=== PATIENT | male | born 1950 | race Caucasian/White ===

== ENCOUNTER 2016-08-28 11:05 | Inpatient (IN) | payer MEDICARE, MEDICAID ==
[2016-08-28] MEDS ORDERED: Vancomycin(*) 1,000 MG in NS 0.9% 250 ML* 250 ML IVPB ONE ×2 (11:27→12:00)
[2016-08-28] MEDS ORDERED: NS 0.9% 1000 ML* 2,000 ML IV ONE (11:27)
[2016-08-28] MEDS ORDERED: metroNIDAZOLE IV 500 MG/100ML* 500 MG/100 ML BAG IVPB ONE (11:27)
[2016-08-28] MEDS ORDERED: NS 0.9% 50 ML* 100 ML ONE (11:47)
[2016-08-28 11:56] LABS: Hematocrit 41 % (42-52); Hemoglobin 11.8 g/dl (14.0-18.0); Mean Corpuscular HGB Conc 29 g/dl (31-36); Mean Corpuscular Hemoglobin 21 pg (27-31); Mean Corpuscular Volume 74 fL (80-94); Mean Platelet Volume 10 um3 (7.4-10.4); Red Blood Count 5.56 10^6/ul (4.0-5.4); Red Cell Distribution Width 19 % (10.5-15); White Blood Count 32.3 10^3/ul (3.5-10.8)
[2016-08-28 11:57] LABS: Add Diff/Slide Review? Slide Review Added; Comments Flag Yes
[2016-08-28] MEDS: Acetaminophen SUPP* 650 MG SUPP PR ONE ×2 (11:58→14:56)
[2016-08-28] MEDS ORDERED: Norepinephrine 16MCG/ML IVPRE* 4,000 MCG/250 ML BAG IV ONE (12:00)
[2016-08-28] MEDS ORDERED: Cefepime(*) 2 GM in NS 0.9% 50 ML* 50 ML IVPB ONE (12:00)
[2016-08-28 12:01] LABS: PCO2 Arterial 45 mmHg (35-45)
[2016-08-28 12:12] LABS: ALT 19 U/L (7-52); AST 15 U/L (13-39); Albumin 2.9 g/dL (3.2-5.2); Alkaline Phosphatase 191 U/L (34-104); Anion Gap 6 mmol/L (2-11); BUN/Creatinine Ratio 16.3 (8-20); Blood Urea Nitrogen 49 mg/dL (6-24); C Reactive Protein 83.63 mg/L (< 5.00); CO2 Carbon Dioxide 30 mmol/L (22-32); Calcium 8.6 mg/dL (8.6-10.3); Chloride 112 mmol/L (101-111); Creatine Kinase 153 U/L (10-223); EGFR African American 27.3 (>60); EGFR Non-African American 21.2 (>60); Glucose 352 mg/dL (70-100); Lipase 16 U/L (11.0-82.0); Magnesium 2.2 mg/dL (1.9-2.7); Potassium 4.6 mmol/L (3.5-5.0); Sodium 148 mmol/L (133-145); Total Protein 5.9 g/dL (6.4-8.9)
[2016-08-28] MEDS ORDERED: EPINEPHrine SYR 0.1 MG/ML* (1:10,000) SYRINGE ONE ×2 (12:20→13:20)
[2016-08-28] MEDS: NS 0.9% 1000 ML* 3,000 ML IV ONE ×2 (12:24→14:54)
[2016-08-28] MEDS ORDERED: fentaNYL* 50 MCG/ML 5 ML VIAL (250 MCG VIAL) ONE (12:32)
[2016-08-28] MEDS ORDERED: Propofol* 10 MG/ML 20 ML BTL IV PUSH ONE (12:32)
[2016-08-28] MEDS ORDERED: Propofol* 100 ML ONE (12:37)
--- NOTE | 2016-08-28 12:37 | RAD ---
HISTORY: Altered mental status COMPARISONS: October 10, 2013 VIEWS:1: Single frontal portable view of the chest at 12:00 PM FINDINGS: LINES AND TUBES: None. CARDIOMEDIASTINAL SILHOUETTE: The cardiomediastinal silhouette is normal for portable technique. PLEURA: The costophrenic angles are sharp. No pleural abnormalities are noted. LUNG PARENCHYMA: The lung volumes are low. The lungs are clear accounting for the phase of respiration. ABDOMEN: The upper abdomen is clear. There is no subphrenic gas. BONES AND SOFT TISSUES: No bone or soft tissue abnormalities are noted. IMPRESSION: LOW LUNG VOLUMES. NO ACTIVE CARDIOPULMONARY DISEASE.
[2016-08-28] MEDS ORDERED: Norepinephrine 16MCG/ML IVPRE* (4 MG/250 ML) IV ONE (12:50)
--- NOTE | 2016-08-28 12:52 | ED ---
Ash Siddiqui Anna, scribed for Tony Cm MD on 08/28/16 at 1120 . Altered Mental Status - HPI Summary HPI Summary: Patient is a 65 y/o male BIBA to [facility] presenting with sudden onset of constant AMS that began two hours ago. The staff at [facility], where he is a resident, noticed increased lethargy and speech deficits that began this morning. They have additionally noticed left pedal edema and SOB that began a while ago. His O2 sat was 82 on RA and 94 on 4L. His history is significant for CVA and left-sided weakness. LEVEL 5 CAVEAT UNABLE TO OBTAIN FULL HISTORY DUE TO ALTERED MENTAL STATUS. - History Of Current Complaint Stated Complaint: DIFF BREATHING/FEVER Hx Obtained From: EMS Hx From Patient Unobtainable Due To: Altered Mental Status Onset/Duration: Still Present Timing: Lasting Hours - Allergies/Home Medications Allergies/Adverse Reactions: Allergies Allergy/AdvReac Type Severity Reaction Status Date / Time Wheat Bran AdvReac See Comment Verified 11/29/13 09:47 PMH/Surg Hx/FS Hx/Imm Hx Endocrine/Hematology History: Reports: Hx Anticoagulant Therapy - HX AFIB, Hx Diabetes Denies: Hx Blood Disorders, Hx Blood Transfusions, Hx Bone Marrow Disease, Hx Systemic Lupus Erythematosus, Hx Sickle Cell Disease, Hx Thyroid Disease, Hx Anemia, Hx Unexplained Bleeding Cardiovascular History: Reports: Hx Hypercholesterolemia, Hx Hypertension, Other Cardiovascular Problems/Disorders - Favio Tolbert Denies: Hx Aneurysm, Hx Angina, Hx Angioplasty, Hx Auto Implanted Cardiovert Defib, Hx Cardiac Arrest, Hx Cardiomegaly, Hx Congenital Heart Disease, Hx Congestive Heart Failure, Hx Coronary Artery Disease, Hx Deep Vein Thrombosis, Hx Embolism, Hx Hypotension, Hx Pacemaker/ICD, Hx Peripheral Vascular Disease, Hx Rheumatic Fever, Hx Syncope, Hx Valvular Heart Disease Respiratory History: Denies: Hx Asthma, Hx Chronic Bronchitis, Hx Chronic Obstructive Pulmonary Disease (COPD), Hx Cystic Fibrosis, Hx Lung Cancer, Hx Pleural Effusion, Hx Pulmonary Edema, Hx Pulmonary Embolism, Hx Seasonal Allergies, Other Respiratory Problems/Disorders Comment Only: Hx Sleep Apnea - questionable GI History: Denies: Hx Cirrhosis, Hx Crohn's Disease, Hx Diverticulosis, Hx Gall Bladder Disease, Hx Gastroesophageal Reflux Disease, Hx Gastrointestinal Bleed, Hx Hiatal Hernia, Hx Irritable Bowel, Hx Jaundice, Hx Obstructive Bowel, Hx Ileostomy, Hx Pyloric Stenosis, Hx Ulcer, Other GI Disorders History: Reports: Hx Benign Prostatic Hyperplasia - [employer] STATES, Hx Chronic Renal Failure - H+P states CKD, Other Problems/Disorders - cronic UTI, urinary retention Denies: Hx Acute Renal Failure, Hx Dialysis, Hx Kidney Infection, Hx Kidney Stones Musculoskeletal History: Reports: Other Musculoskeletal History - Hx of hip fx and femur fx Denies: Hx Arthritis, Hx Back Problems, Hx Bursitis, Hx Congenital Bone Abnormalities, Hx Fibromyalgia, Hx Gout, Hx Orthopedic Injury, Hx Osteoporosis, Hx Scoliosis, Hx Tendonitis Sensory History: Reports: Hx Contacts or Glasses, 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 LEFT FEMUR FX Hx Anesthesia Reactions: No - Immunization History Date of Tetanus Vaccine: Unk Date of Influenza Vaccine: No longer gets flu vaccine, as consistently had flu after vaccine Infectious Disease History: Denies: Hx Clostridium Difficile, Hx Hepatitis, Hx Human Immunodeficiency Virus (HIV), Hx of Known/Suspected MRSA, Hx Shingles, Hx Tuberculosis, Hx Known/ Suspected VRE, Hx Known/Suspected VRSA, History Other Infectious Disease - Family History Known Family History: Positive: Hypertension - Social History Lives: [facility] Alcohol Use: None Substance Use Type: Reports: None Smoking Status (MU): Former Smoker Review of Systems - ROS Summary Review of Systems Summary: LEVEL 5 CAVEAT UNABLE TO OBTAIN FULL HISTORY DUE TO ALTERED MENTAL STATUS. Positive: Other - lethargy Positive: Shortness Of Breath Positive: Edema Neurological: Other - Altered mental status, aphasia All Other Systems Reviewed And Are Negative: No Physical Exam Triage Information Reviewed: Yes Vital Signs Reviewed: Yes Appearance: Positive: Well-Appearing, No Pain Distress Skin: Positive: Warm, Skin Color Reflects Adequate Perfusion, Dry Head/Face: Positive: Normal Head/Face Inspection Eyes: Positive: EOMI, MARY ELLEN ENT: Positive: Normal ENT inspection Neck: Positive: Supple, Nontender Respiratory/Lung Sounds: Positive: Rhonchi - Bilaterally Cardiovascular: Positive: Tachycardia Abdomen Description: Positive: Nontender, Soft Musculoskeletal: Positive: Other - Left side flaccid, chronic Neurological: Positive: Other - Nonverbal. Negative: Sensory/Motor Intact - Left side flaccid Psychiatric: Positive: Affect/Mood Appropriate Diagnostics - Laboratory Lab Results: Lab Results 08/28/16 08/28/16 08/28/16 Range/Units 11:15 11:15 11:15 WBC 32.3 H (3.5-10.8) 10^3/ul RBC 5.56 H (4.0-5.4) 10^6/ul Hgb 11.8 L (14.0-18.0) g/dl Hct 41 L (42-52) % MCV 74 L (80-94) fL MCH 21 L (27-31) pg MCHC 29 L (31-36) g/dl RDW 19 H (10.5-15) % Plt Count 207 (150-450) 10^3/ul MPV 10 (7.4-10.4) um3 Neut % (Auto) 93.1 H (38-83) % Lymph % (Auto) 0.8 L (25-47) % Mcnairy % (Auto) 4.7 (1-9) % Eos % (Auto) 0.1 (0-6) % Baso % (Auto) 1.3 (0-2) % Absolute Neuts (auto) 30.1 H (1.5-7.7) 10^3/ul Absolute Lymphs (auto) 0.3 L (1.0-4.8) 10^3/ul Absolute Monos (auto) 1.5 H (0-0.8) 10^3/ul Absolute Eos (auto) 0 (0-0.6) 10^3/ul Absolute Basos (auto) 0.4 H (0-0.2) 10^3/ul Absolute Nucleated RBC 0.07 10^3/ul Nucleated RBC % 0.2 INR (Anticoag Therapy) 1.96 H (0.89-1.11) APTT 56.5 H (26.0-36.3) seconds D-Dimer, Quantitative 200 (Less Than 230) ng/mL ABG pH (7.35-7.45) ABG pCO2 (35-45) mmHg ABG pO2 (80-100) mmHg ABG HCO3 (19-31) mmol/L ABG O2 Saturation (95-98) % ABG Base Excess (-2.0-2.0) Sodium 148 H (133-145) mmol/L Potassium 4.6 (3.5-5.0) mmol/L Chloride 112 H (101-111) mmol/L Carbon Dioxide 30 (22-32) mmol/L Anion Gap 6 (2-11) mmol/L BUN 49 H (6-24) mg/dL Creatinine 3.00 H (0.67-1.17) mg/dL Est GFR ( Amer) 27.3 (>60) Est GFR (Non-Af Amer) 21.2 (>60) BUN/Creatinine Ratio 16.3 (8-20) Glucose 352 H (70-100) mg/dL Lactic Acid (0.5-2.0) mmol/L Calcium 8.6 (8.6-10.3) mg/dL Magnesium 2.2 (1.9-2.7) mg/dL Total Bilirubin 1.00 (0.2-1.0) mg/dL AST 15 (13-39) U/L ALT 19 (7-52) U/L Alkaline Phosphatase 191 H (34-104) U/L Total Creatine Kinase 153 (10-223) U/L CK-MB (CK-2) 2.1 (0.6-6.3) ng/mL Troponin I Pending C-Reactive Protein 83.63 H (< 5.00) mg/L Total Protein 5.9 L (6.4-8.9) g/dL Albumin 2.9 L (3.2-5.2) g/dL Globulin 3.0 (2-4) g/dL Albumin/Globulin Ratio 1.0 (1-3) Lipase 16 (11.0-82.0) U/L TSH Pending 08/28/16 08/28/16 Range/Units 11:15 11:45 WBC (3.5-10.8) 10^3/ul RBC (4.0-5.4) 10^6/ul Hgb (14.0-18.0) g/dl Hct (42-52) % MCV (80-94) fL MCH (27-31) pg MCHC (31-36) g/dl RDW (10.5-15) % Plt Count (150-450) 10^3/ul MPV (7.4-10.4) um3 Neut % (Auto) (38-83) % Lymph % (Auto) (25-47) % Mcnairy % (Auto) (1-9) % Eos % (Auto) (0-6) % Baso % (Auto) (0-2) % Absolute Neuts (auto) (1.5-7.7) 10^3/ul Absolute Lymphs (auto) (1.0-4.8) 10^3/ul Absolute Monos (auto) (0-0.8) 10^3/ul Absolute Eos (auto) (0-0.6) 10^3/ul Absolute Basos (auto) (0-0.2) 10^3/ul Absolute Nucleated RBC 10^3/ul Nucleated RBC % INR (Anticoag Therapy) (0.89-1.11) APTT (26.0-36.3) seconds D-Dimer, Quantitative (Less Than 230) ng/mL ABG pH 7.44 (7.35-7.45) ABG pCO2 45 (35-45) mmHg ABG pO2 304 H (80-100) mmHg ABG HCO3 29.4 (19-31) mmol/L ABG O2 Saturation 99.8 H (95-98) % ABG Base Excess 5.7 H (-2.0-2.0) Sodium (133-145) mmol/L Potassium (3.5-5.0) mmol/L Chloride (101-111) mmol/L Carbon Dioxide (22-32) mmol/L Anion Gap (2-11) mmol/L BUN (6-24) mg/dL Creatinine (0.67-1.17) mg/dL Est GFR ( Amer) (>60) Est GFR (Non-Af Amer) (>60) BUN/Creatinine Ratio (8-20) Glucose (70-100) mg/dL Lactic Acid 1.6 (0.5-2.0) mmol/L Calcium (8.6-10.3) mg/dL Magnesium (1.9-2.7) mg/dL Total Bilirubin (0.2-1.0) mg/dL AST (13-39) U/L ALT (7-52) U/L Alkaline Phosphatase (34-104) U/L Total Creatine Kinase (10-223) U/L CK-MB (CK-2) (0.6-6.3) ng/mL Troponin I C-Reactive Protein (< 5.00) mg/L Total Protein (6.4-8.9) g/dL Albumin (3.2-5.2) g/dL Globulin (2-4) g/dL Albumin/Globulin Ratio (1-3) Lipase (11.0-82.0) U/L TSH Result Diagrams: 08/28/16 11:15 08/28/16 11:15 Lab Statement: Any lab studies that have been ordered have been reviewed, and results considered in the medical decision making process. - Radiology CXR Xray Interpretation: Positive (See Comments) - IMPRESSION: LOW LUNG VOLUMES. NO ACTIVE CARDIOPULMONARY DISEASE. Radiology Interpretation Completed By: Radiologist - EKG 1124 Cardiac Rate: Tachycardia - 151 bpm Ectopy: None EKG Interpretation: Atrial Tachycardia EKG Comparison: No Significant Change - Compared to EKG from 11/29/2013 Re-Evaluation - Re-Evaluation First Eval Re-Evaluation Time: 11:48 Comment: Visited patient with Dr. Singh. Patient is acidotic at this time. Altered Mental Statu Course/Dx - Course Assessment/Plan: DR SINGH SAW PATIENT IN ED. ADMIT ICU CRITICAL. - Diagnoses Discharge Diagnoses: Pneumonia, Altered mental state - Provider Notifications Discussed Care Of Patient With: Dr. Singh (Critical Care Global Marketing Intern) at 1130. Dr. Singh will come evaluate the patient. Dr. Singh (Critical Care Global Marketing Intern) at 1151. Dr. Singh accepts the patient for admission. Discharge - Discharge Plan Condition: Critical Disposition: ADMITTED TO [facility] documentation as recorded by the Ash yan Anna accurately reflects the service I personally performed and the decisions made by me, Tony Cm MD.
[2016-08-28 13:05] LABS: Immature Granulocytes 2 % (0-9); Neutrophil % 95 % (38-83)
[2016-08-28 13:09] LABS: Hypochromasia 2+; Target Cells 1+
[2016-08-28 13:10] LABS: Schistocytes 1+
[2016-08-28 13:12] LABS: Add Path Review? YES; Microcytosis 2+; Polychromasia 1+
[2016-08-28] MEDS ORDERED: NS 0.9% 1000 ML* 3,000 ML IV ONE (13:28)
[2016-08-28] MEDS ORDERED: fentaNYL* 50 MCG/ML 2 ML VIAL (100 MCG VIAL) IV SLOW PU PRN (13:30)
[2016-08-28] MEDS ORDERED: Norepinephrine 16MCG/ML IVPRE* 4,000 MCG/250 ML BAG IV SCH (14:00)
[2016-08-28] MEDS ORDERED: Chlorhexidine MOUTHWASH 0.12%* 15 ML UDC TOPICAL SCH (14:00)
[2016-08-28] MEDS ORDERED: Propofol* 100 ML IV SCH (14:00)
--- NOTE | 2016-08-28 14:07 | RAD ---
HISTORY: Status post intubation COMPARISONS: August 28, 2016 11:56 AM VIEWS:1: Single frontal portable view of the chest at 1:30 PM FINDINGS: LINES AND TUBES: An endotracheal tube is noted with the tip overlying the trachea between the clavicles and the ana. A gastric tube is noted. The tip is not well visualized given the current technique. A right internal jugular venous catheter is noted with the overlying the superior vena cava. CARDIOMEDIASTINAL SILHOUETTE: The cardiomediastinal silhouette is normal for portable technique. PLEURA: The costophrenic angles are sharp. No pleural abnormalities are noted. LUNG PARENCHYMA: The lung volumes are low. ABDOMEN: The upper abdomen is clear. There is no subphrenic gas. BONES AND SOFT TISSUES: No bone or soft tissue abnormalities are noted. IMPRESSION: LINES AND TUBES ABOVE. LOW LUNG VOLUMES.
[2016-08-28] MEDS ORDERED: Norepinephrine VIAL* 1 MG/ML 4 ML VIAL ONE (14:35)
[2016-08-28] MEDS ORDERED: Acetaminophen IV 1GM/100ML * 100 ML ONE (14:44)
[2016-08-28] MEDS ORDERED: Acetaminophen IV 1GM/100ML * 1,000 MG in PREMIX* 0 ML IVPB ONE (14:44)
[2016-08-28] MEDS ORDERED: Amiodarone 150 MG IVPREMIX* 150 MG/100 ML BAG IV ONE (15:25)
[2016-08-28] MEDS ORDERED: NS 0.9% 1000 ML* 1,000 ML IV SCH (15:30)
--- NOTE | 2016-08-28 15:30 | HP ---
H&P (Free Text) History and Physical: CRITICAL CARE MEDICINE DATE: 08/28/16 TIME: 1130 PRIMARY CARE PROVIDER: Ayla REFERRING PROVIDER: Soila REASON/CHIEF COMPLAINT: resp failure HISTORY OF PRESENT ILLNESS: 65 M, resident of [facility] presenting with altered ms and sob. Jacktenhomar has been having sob for some time but was more altered today with failing speech as well and brought into ED. Febrile there, tachycardic, looking like 2:1 aflutter, hypoxic placed on vapotherm with poor appearance overall. ICU called immediately and advised of pt and full code status. On eval pt was tachycardic to 150s, shallow tachychipnic respirations into mid 30s, sats holding but poor ventilation and perfusion. Recieving IVF, abx, HFo2 and cxr pending and then move to ICU. REVIEW OF SYSTEMS: As per HPI. Pt unable to give history. PAST MEDICAL HISTORY: As per HPI. Prior CVA with residual Left side hemiparesis. AFib on coumdin. DM. COPD. Uti-sepsis. CKD 3. Degree of pulm htn MEDICATIONS: Reviewed per records. ALLERGIES: NKDA SOCIAL HISTORY: Reviewed. Sister proxy FAMILY HISTORY: Noncontributory at present. PHYSICAL EXAM: Vital Signs: Reviewed. Neurologic: moderate encephalopathy and able to respond to questions but difficulty with answers. pupils reactive. HEENT: anicteric. mm very dry. Cardiovascular: tachy, no m Respiratory: coarse with rhonchi bl but no rales appreciated but poor ventilation. unable to voluntarily cough. Abdomen: mild distention, soft. Extremities: warm; left side dep edema and left le with some weeping fluid given further new overload Access: per LABS: Reviewed. IMAGING: Reviewed. Chronic changes on cxr, but with LLL airspace dz. MEDICATIONS: Reviewed. ASSESSMENT: 65 M presenting with septic shock secondary to uti vs > pna, acute hypoxic resp failure, septic encephalopathy, acute on chronic renal failure. PLAN: Shock with inability to compensate. Needs intubation, mv, cvc and vasopressors with ivf, abx and time. Neurologic: sedate with fent propofol. Cardiovascular: hypoperfused. aflutter sec to demand and would not convert just yet. see if intubation and perfusion helps. may need to cardoivert if unable to on his own. Needs IVF. 8 L ordered. Respiratory: failing ventilation although he is trying. intubate and support. recruit as high likelihood of interstial fluid sequestration after hydration met. Gastrointestinal: ogt. sup Renal/Metabolic: cr double baseline and malperfused. ernst and f/u. ua pending. Infectious Disease: cefepime, vanco continued. f/u cx. urine pending. Hematology: reactive leukocytocysis and quite inflammed and hemoconcentrated. f/ u. inr ok. f/u coumadin needs. Endocrine: may need steroids but reserve if able. Musculoskeletal: f/u needs and skin care given his acute on chronic immobility Psych/Social: sister/proxy on her way in and will be updated. Supportive and preventative care as ordered. SUP: ppi VTE prophylaxis: coumadin Ernst catheter given critical illness, monitoring needs for accurate assessment of SELMA and KDIGO criteria for critically ill patients and to avoid potential harms of urinary retention, skin breakdown/ulcers. Disposition: ICU Code Status: Full Critical Care Time: 45min FAnuel Knowles DO
--- NOTE | 2016-08-28 15:40 | PN ---
Progress Note - Progress Note Note: CRITICAL CARE MEDICINE Intubation of pt went well. anticipated decline in bp and on levophed. however HR stayed with aflutter and pea ensued. cpr initiated by nursing and epi ordered by myself. concern for R heart failure and taken off vent momentarily to convert to bag ventilation as well. Obtained ROSC 2min post epi and cpr. levophed up and care resumed. CVC placed (see separate note). Pt hr back with likely aflutter and BP holding but considering cardioversion given dynamics. Screening bedside echo revealing poor RV function and underfilled LV. Pt equilibrating again. Sister then arrived. We discussed dx and px. She provided pts living will which does explain DNR, DNI no large interventions basically and that's how she believes he has felt about things. Pt does have a molst howerver with trial and +cpr. After discussion, and her discussing via phone with pts brother and son that we will continue efforts as is, but as DNR. If unable to re-animate in a positive direction then we would consider comfort care. DNR, No large escalations in care, ensure comfort. Critical Care Time: 20min additional excluding procedures. Ck Knowles, DO
--- NOTE | 2016-08-28 15:51 | PN ---
Progress Note - Progress Note Note: CRITICAL CARE MEDICINE PROCEDURE NOTE DATE: 08/28/16 TIME: 1250 SERVICE: Critical Care Medicine LOCATION OF PROCEDURE: ICU PROCEDURE: Central line insertion PROCEDURALIST: Dr. Knowles Consent obtain: No, procedure performed emergently Time out held: Yes INDICATION: Acute respiratory failure / Septic shock / Pneumonia PROCEDURE: Oxygenation maintained and vitals monitored. Patient in supine position. SITE: RIGHT Internal jugular Site preparation with chlorhexidine locally. Full sterile drape, gown, hat, mask, gloves. 5ml 1% Lidocaine utilized at incision site. Standard sterile Seldinger technique utilized via ultrasound guidance and catheter was inserted to 16cm and sutured in place. Good blood return. Minimal blood loss. Site dressed with tegaderm. Portable chest x-ray pending. Patient otherwise tolerated well. Ck Knowles DO
[2016-08-28] MEDS ORDERED: Hydrocortisone INJ* 100 MG VIAL IV SCH (16:00)
--- NOTE | 2016-08-28 16:36 | DS ---
CRITICAL CARE MEDICINE DISCHARGE SUMMARY ADMISSION DATE: 08/28/2016 ICU ADMISSION DATE: 08/28/2016 ICU DISCHARGE DATE: 08/28/2016 PRIMARY CARE PROVIDER: Dr. Aguila. REFERRING PHYSICIAN: Dr. Cm. DIAGNOSIS: 1. Multisystem organ failure. 2. Septic shock, most likely secondary to urinary tract infection. 3. Septic encephalopathy. 4. Acute hypoxic respiratory failure. 5. Chronic right ventricular pressure overload. 6. Acute on chronic renal failure. 7. History of residual left sided hemiparesis. MEDICATIONS AT DISCHARGE: None. ALLERGIES: None. HOSPITAL COURSE: 65 year old, resident of [facility] presenting with altered mental status and shortness of breath. Febrile and tachycardic on admission. Placed on vapotherm with poor appearance overall and ICU called immediately. Treatment for septic shock. Admitted to intensive care with intubation needs performed. Anticipated and started on levophed but developed pulseless electric activity requiring 3 minutes of cardiopulmonary resuscitation. Return of circulation with vasopressor needs. Central line placed. Maxed support and patient continued to fail. Patient's proxy advised us of patients living will and she desired to allow care but as do not resuscitate. Despite max support patient continued to decline and ultimately passed. Family declines autopsy. DISPOSITION: . Ck Knowles DO
--- NOTE | 2016-08-28 16:50 | PN ---
Progress Note - Progress Note Note: CRITICAL CARE MEDICINE PROCEDURE NOTE DATE: 08/28/16 TIME: 1230 SERVICE: Critical Care Medicine LOCATION OF PROCEDURE: ICU PROCEDURE: Endotracheal intubation PROCEDURALIST: JOHN PAUL Underwood /Dr. Knowles supervised Consent obtain: No, procedure performed emergently Time out held: Not indicated INDICATION: Acute respiratory failure / Septic shock. PROCEDURE: Oxygenation maintained and vitals monitored. Patient in supine position. Pre-medication with fentanyl 100mcg / propofol 50mg. Levophed gtt at 5mcg/min initiated Glidescope #3 inserted with Grade 1 view obtained. 8.0 endotracheal tube inserted to 23cm lip. Good chest rise with breath sounds appreciated in bilaterally lung scott. EtCO2 + . Portable chest x-ray pending. Patient otherwise tolerated well. I was present and directly participated in garcia portions of the procedure. Ck Knowles DO
[2016-08-28 17:16] VITALS: BP 44/29
--- NOTE | 2016-08-29 01:21 | PRO ---
PROCEDURE NOTE: DATE OF PROCEDURE: 08/28/16 - ROOM #ICU-08 SERVICE: Critical Care Medicine. LOCATION OF PROCEDURE: ICU. PROCEDURE BEING PERFORMED: Endotracheal intubation. PROCEDURALIST: Carli Brower NP. Dr. Knowles supervising. CONSENT OBTAINED: No, procedure performed emergently, time-out held. Not indicated. INDICATION: Acute respiratory failure, septic shock. DESCRIPTION OF PROCEDURE: Oxygenation were maintained and vitals were monitored. The patient was placed in the supine position. The patient was pre- medicated with 100 of fentanyl and 50 mg of propofol. The GlideScope #3 was inserted with a grade I view obtained. An 8.0 endotracheal tube was inserted at 23 . There was good chest thrive and breath sounds. He had positive color change. End-tidal CO2 was noted to be at 33. The patient tolerated [place] [id number]/[facility] #: [id number] MTDD
== END 2016-08-28 16:18 | disposition expired | DRG 853 ==
LOC: ED 11:05 → ICU 12:03
PROVIDERS: ADMIT Internal Medicine Critical Care Medicine; ATTEND Internal Medicine Critical Care Medicine
PROC: 5A1935Z Respiratory Ventilation, Less than 24 Consecutive Hours (ICD-10-PCS; principal; 2016-08-28)
PROC: 5A02216 Assistance with Cardiac Output using Other Pump, Continuous (ICD-10-PCS; 2016-08-28)
PROC: 0BH17EZ Insertion of Endotracheal Airway into Trachea, Via Natural or Artificial Opening (ICD-10-PCS; 2016-08-28)
PROC: 05HM33Z Insertion of Infusion Device into Right Internal Jugular Vein, Percutaneous Approach (ICD-10-PCS; 2016-08-28)
DX: A41.9 Sepsis, unspecified organism (principal); R65.21 Severe sepsis with septic shock; J96.01 Acute respiratory failure with hypoxia; G93.41 Metabolic encephalopathy; N17.9 Acute kidney failure, unspecified; I48.92 Unspecified atrial flutter; E11.22 Type 2 diabetes mellitus with diabetic chronic kidney disease; I69.354 Hemiplegia and hemiparesis following cerebral infarction affecting left non-dominant side; N39.0 Urinary tract infection, site not specified; E11.40 Type 2 diabetes mellitus with diabetic neuropathy, unspecified; Z91.018 Allergy to other foods; I48.91 Unspecified atrial fibrillation; E78.00 Pure hypercholesterolemia, unspecified; H54.41 Blindness, right eye, normal vision left eye; H91.8X1 Other specified hearing loss, right ear; Z82.49 Family history of ischemic heart disease and other diseases of the circulatory system; Z87.891 Personal history of nicotine dependence; N18.9 Chronic kidney disease, unspecified; I12.9 Hypertensive chronic kidney disease with stage 1 through stage 4 chronic kidney disease, or unspecified chronic kidney disease; I46.9 Cardiac arrest, cause unspecified; Z66 Do not resuscitate
CPT/HCPCS: 36415; 71010; 80053; 82550; 82553; 82803; 83605; 83690; 83735; 83880; 84484; 85025; 85060; 85379; 85610; 85730; 86140; 87040; 92950; 93005; 94002; A9270-GY; J0171; J0282; J0692; J1720; J2704; J3010; J3370; J3490